=== PATIENT | male | born 1955 | race Caucasian/White ===

== ENCOUNTER 2019-08-25 03:42 | Observation (INO) | payer BC, OTHER ==
[2019-08-25] VITALS (99 sets, daily range): BP systolic 116–144; BP diastolic 73–89; PULSE 53–78; TEMP 97.6–97.9; O2SAT 97–100
[~2019-08-25] VITALS: Ht 182.9 cm; Wt 86.1 kg
[~2019-08-25 03:42] MED LIST: LISINOPRIL/HCTZ1 TAB PO; MVI
[2019-08-25 03:55] LABS: BASO % 0.6 % (0.0-2.0); EOS # 0.2 (0.0-0.7); EOS % 3.3 % (0-4.0); GRAN # 3.5 (1.4-6.5); GRAN % 55.2 % (42.2-75.2); HEMATOCRIT 37.7 % (42.0-52.0); HEMOGLOBIN 12.7 g/dl (13.5-18.0); LYMPH # 2.2 (1.2-3.4); LYMPH % 34.9 % (20.0-51.0); MEAN CELL VOLUME 89 fl (80.0-100.0); MEAN CORPUSCULAR HEMOGLOBIN 30 pg (27.0-31.0); MEAN CORPUSCULAR HGB CONC 34 g/dl (33.0-37.0); MEAN PLATELET VOLUME 8.6 fl (7.4-10.4); MONO # 0.4 (0.1-0.6); MONO % 5.8 % (1.7-9.3); PLATELET COUNT 255 K/mm3 (130-400); RED BLOOD COUNT 4.26 M/mm3 (4.20-5.60); REDCELL DISTRIBUTION WIDTH-CV 12.9 % (11.5-14.5)
[2019-08-25 04:03] LABS: ALANINE AMINOTRANSFERASE 16 U/L (4-49); ALCOHOL(ethanol),MEDICAL < 10 mg/dL; ALKALINE PHOSPHATASE 79 U/L (50-136); ANION GAP 8 mmol/L (7-16); AST,SGOT 23 U/L (15-37); BILIRUBIN,TOTAL 0.4 mg/dL (0.0-1.0); BLOOD UREA NITROGEN 16 mg/dL (9-20); CALCIUM 8.8 mg/dL (8.4-10.2); CARBON DIOXIDE 25 mmol/L (22-30); CHLORIDE 102 mmol/L (98-107); CREATINE KINASE 114 U/L (55-170); CREATININE, serum 1.06 (0.66-1.25); GLUCOSE 101 mg/dL (74-106); MAGNESIUM 2.1 mg/dL (1.6-2.3); POTASSIUM 3.6 mmol/L (3.4-5.0); SODIUM 135 mmol/L (137-145); TOTAL PROTEIN 6.7 gm/dL (6.4-8.2)
[2019-08-25 04:13] LABS: TROPONIN-I < 0.012 ng/mL (0.000-0.035)
[2019-08-25 04:18] LABS: PROLACTIN 46.3 ng/mL (3.7-17.9)
--- NOTE | 2019-08-25 06:08 | NUR ---
PT ARRIVED TO UNIT VIA ER STRETCHER ACCOMPANIED BY CLEMENT YEBOAH. PT TRANSFERRED BED TO BED WITH ASSISTANCE OF SEVERAL STAFF MEMBERS. PT ORIENTED TO ROOM, ENCOURGED TO ASK QUESTIONS, UPDATED ON POC. WILL CONTINUE TO MONITOR. SEIZURE PADS IN ROOM.
--- NOTE | 2019-08-25 07:00 | NUR ---
REPORT GIVEN TO CLEMENT ARAUJO.
[2019-08-25] MEDS ORDERED: PRINIVIL2.5 MG (07:10)
[2019-08-25] MEDS ORDERED: HCTZ12.5TAB PO (07:11)
[2019-08-25 09:20] LABS: COLLECTION METHOD CLEAN CATCH
--- NOTE | 2019-08-25 09:27 | NUR ---
SW met with the patient to discuss discharge plan. The patient lives in [place] with his , Giulia ([id number]#[phone]), and oldest daughter, Rosmery. He reports independence with ADLs and does not have any DME. He works maintenance for [employer]. The patient's PCP is Dr. Pino Scott and he receives his medications through the [facility] and [facility]. He reports no difficulties obtaining his meds. The patient does not have advanced directives in EMR, but he reports that he does have them completed. He states that his is his DPOA-HC. The patient plans to return home with his upon discharge. No additional needs at this time.
[2019-08-25 09:29] LABS: MUCOUS Present /lpf; PH 6 (5-8); SQUAMOUS EPITHELIAL None Seen /hpf; URINE APPEARANCE Clear; URINE BACTERIA None Seen /hpf; URINE BILIRUBIN Negative (NEGATIVE); URINE BLOOD 1+ (NEGATIVE); URINE COLOR Yellow; URINE GLUCOSE Negative (NEGATIVE); URINE KETONE Negative (NEGATIVE); URINE LEUKOCYTE ESTERASE Negative (NEGATIVE); URINE NITRATE Negative (NEGATIVE); URINE PROTEIN(semi-quant) Negative (NEGATIVE); URINE UROBILINOGEN Negative (NEGATIVE)
--- NOTE | 2019-08-25 10:45 | NUR ---
Pt to MRI via acc by technologist. Pt notified of plan to transfer to medical as soon as bed assigned. Dr Erazo updated with patient's report of recent PCP visit for tick bite. During this same visit he had an abcess drained and cultured and was placed on septra. Per patient he completed rx "a few days ago" records of this visit requested and received from Dr Scott. RN asks if pt would benefit from doxycycline-Kacey states he will not be making any changes to antibiotics at this time. 1120-report called to CLEMENT Lange. Chart, belongings and telemetry unit delivered to unit. dairy technologist transports patient to room 351 following exam.
--- NOTE | 2019-08-25 12:00 | NUR ---
Pt admission assessment completed, alert,oriented, roomair. Assessed his tick bites on left upper knee, small, circular, light red bite. As per pt the bite was shrinken few days back and its getting swollen again. Pt arrived to the the medical follor at around 11:30 am. No further needs at this time.
--- NOTE | 2019-08-25 13:59 | NUR ---
Pt doing well, requesting to brush teeth, provided w/ toothbrush and toothpaste. Neuro checks WNL, VSS. Pt denies pain or needs at this time. Seizure precautions in place. A&O.
--- NOTE | 2019-08-25 16:50 | NUR ---
Pt bed alarm sounding, pt up to bathroom. pt educated on using call light, explained POC and safety concerns. pt verbalized understanding, stated he would call for standby assistance. VSS. Neuro checks WNL.
--- NOTE | 2019-08-25 18:34 | NUR ---
Pt has a mouth sores on his tongue and cheeck, pt stated discomfort, swolling and pain offered him ice pack to apply. Pt is sleeping on and off. No further needs at this time.
[2019-08-26 00:26] VITALS: BP 115/65; PULSE 108; TEMP 98.2
[2019-08-26 03:47] VITALS: BP 115/68; PULSE 69; TEMP 98.1
--- NOTE | 2019-08-26 05:34 | NUR ---
PATIENT HAS SLEPT THROUGH THE SHIFTS WITH NO DIFFICULTIES. PATIENT CALLED OUT TO USE THE RESTROOM ONCE DURING THE SHIFT. PATIENT REQUIRES A STAFF MEMEBR PRESENT IN THE ROOM SINCE HIS SEIZURE LIKE ACTIVITY TO USE THE RESTROOM. PATIENT IS SCHEDULED TO HAVE A SLEEP EEG PERFORMED TODAY (08/25). PATIENT IS TOLERATING HIS KEPPRA THAT HAS BEEN STARTED. ONCE HIS TELEY PATCHES WERE FIXED, NO ISSUES NOTED THERE. PATIENT HAS DENIED ANY PAIN. PATIENT DENIES ANY OTHER ISSUES. WILL REPORT OFF TO DAY SHIFT UPON THEIR ARRIVAL.
[2019-08-26 09:21] VITALS: BP 120/75; PULSE 60; TEMP 98.6
--- NOTE | 2019-08-26 09:40 | NUR ---
Pt awake and alert upon entry, no C/O pain at this time, no other issues noted, shift assessment complete, left Pt call light in =reach, bed in lowest position.
[2019-08-26 10:03] LABS: BASO % 0.5 % (0.0-2.0); EOS # 0.3 (0.0-0.7); GRAN # 5.5 (1.4-6.5); GRAN % 68.5 % (42.2-75.2); HEMATOCRIT 37.9 % (42.0-52.0); HEMOGLOBIN 12.7 g/dl (13.5-18.0); LYMPH # 1.8 (1.2-3.4); MEAN CELL VOLUME 91 fl (80.0-100.0); MEAN CORPUSCULAR HEMOGLOBIN 30 pg (27.0-31.0); MEAN CORPUSCULAR HGB CONC 34 g/dl (33.0-37.0); MEAN PLATELET VOLUME 8.8 fl (7.4-10.4); MONO # 0.4 (0.1-0.6); MONO % 4.8 % (1.7-9.3); PLATELET COUNT 228 K/mm3 (130-400); RED BLOOD COUNT 4.19 M/mm3 (4.20-5.60); REDCELL DISTRIBUTION WIDTH-CV 13.2 % (11.5-14.5)
[2019-08-26 10:19] LABS: CALCIUM 8.6 mg/dL (8.4-10.2); CREATININE, serum 0.89 (0.66-1.25); POTASSIUM 3.6 mmol/L (3.4-5.0)
[2019-08-26] MEDS ORDERED: KEPPRA1000 MG PO (10:48)
[2019-08-26 13:06] VITALS: BP 112/74; PULSE 65; TEMP 97.6
--- NOTE | 2019-08-26 15:20 | NUR ---
Pt discharged to home, discussed discharge packet with Pt, answered questions. Contacted spouse and let her know Pt was being discharged. Pt escorted to entrance when spouse arrived, Pt left with spouse via private transportation.
== END 2019-08-26 15:30 | disposition home or self-care (01) ==
LOC: COL.ER 03:42 → MEDICAL 05:30 → ICU 05:30 → MEDICAL 12:56
PROVIDERS: Emergency Medicine; Hospitalist; ADMIT Student in an Organized Health Care Education/Training Program
DX: R56.9 Unspecified convulsions (principal); I10 Essential (primary) hypertension; Z79.899 Other long term (current) drug therapy
CPT/HCPCS: 99239; A9585; J1953

== ENCOUNTER 2019-11-29 11:05 | Emergency (ER) | payer BC ==
[~2019-11-29] VITALS: Ht 182.9 cm; Wt 81.8 kg
[~2019-11-29 11:05] MED LIST changes: +HCTZ12.5TAB PO; +KEPPRA1000 MG PO; +PRINIVIL2.5 MG
[2019-11-29 11:37] LABS: BASO % 0.4 % (0.0-2.0); EOS # 0.2 (0.0-0.7); EOS % 2.2 % (0-4.0); GRAN # 5.3 (1.4-6.5); GRAN % 68.2 % (42.2-75.2); HEMOGLOBIN 13.8 g/dl (13.5-18.0); LYMPH # 1.9 (1.2-3.4); MEAN CELL VOLUME 87 fl (80.0-100.0); MEAN CORPUSCULAR HEMOGLOBIN 30 pg (27.0-31.0); MEAN CORPUSCULAR HGB CONC 35 g/dl (33.0-37.0); MONO # 0.4 (0.1-0.6); MONO % 4.9 % (1.7-9.3); PLATELET COUNT 283 K/mm3 (130-400); RED BLOOD COUNT 4.58 M/mm3 (4.20-5.60); REDCELL DISTRIBUTION WIDTH-CV 12.8 % (11.5-14.5)
[2019-11-29 11:46] LABS: ALANINE AMINOTRANSFERASE 15 U/L (4-49); ALBUMIN 4.2 gm/dL (3.5-5.0); ALKALINE PHOSPHATASE 94 U/L (50-136); ANION GAP 10 mmol/L (7-16); AST,SGOT 35 U/L (15-37); BILIRUBIN,TOTAL 0.6 mg/dL (0.0-1.0); BLOOD UREA NITROGEN 15 mg/dL (9-20); CALCIUM 8.8 mg/dL (8.4-10.2); CARBON DIOXIDE 25 mmol/L (22-30); CHLORIDE 92 mmol/L (98-107); CREATININE, serum 0.93 (0.66-1.25); GLUCOSE 122 mg/dL (74-106); POTASSIUM 3.8 mmol/L (3.4-5.0); SODIUM 127 mmol/L (137-145)
[2019-11-29 11:58] LABS: TROPONIN-I < 0.012 ng/mL (0.000-0.035)
[2019-11-29 12:02] LABS: PROLACTIN 59.9 ng/mL (3.7-17.9)
[2019-11-29 16:44] LABS: CREATININE, serum 0.87 (0.66-1.25); POTASSIUM 3.9 mmol/L (3.4-5.0)
[2019-11-29 17:45] VITALS: BP 117/86; PULSE 73; TEMP 97.9
== END 2019-11-29 16:03 | disposition home or self-care (01) ==
LOC: COL.ER 11:05
PROVIDERS: Emergency Medicine
DX: G40.909 Epilepsy, unspecified, not intractable, without status epilepticus (principal); E87.1 Hypo-osmolality and hyponatremia
CPT/HCPCS: J1953; J7030

== ENCOUNTER → 2020-10-08 | Outpatient (CLI) | payer OTHER | LOC: COL.RAD 11:54 | DX: Z02.71 Encounter for disability determination (principal); M47.812 Spondylosis without myelopathy or radiculopathy, cervical region; Z98.890 Other specified postprocedural states ==